=== PATIENT | male | born 1965 | race Hispanic/Latino ===

== ENCOUNTER 2017-07-11 10:02 | Outpatient (CLI) | payer OTHER ==
[2017-07-11 10:48] LABS: Hemoglobin 16.2 g/dL (14.0-18.0); Mean Corpuscular HGB CONC 34.5 g/dL (32.0-36.0); Mean Corpuscular Hemoglobin 33.4 pg (27.0-31.0); Mean Corpuscular Volume 96.9 fl (80.0-94.0); Mean Platelet Volume 7.6 fL (7.4-10.4); Platelet Count 179 thou/uL (130-400); RBC Distribution Width 12.1 % (11.5-14.5); Red Blood Cell (RBC) Count 4.83 mill/uL (4.70-6.10); White Blood Cell (WBC) Count 5.5 thou/uL (4.8-10.8)
[2017-07-11 11:08] LABS: Anion Gap 10 mmol/L (10-20); BUN (Urea Nitrogen) 27 mg/dL (8.4-25.7); Calc. Creatinine Clearance 0 mL/min (70-130); Calcium 9.5 mg/dL (7.8-10.44); Carbon Dioxide 34 mmol/L (22-29); Chloride 96 mmol/L (98-107); Estimated GFR-MDRD 65; Glucose 163 mg/dL (70-105); Potassium 3.2 mmol/L (3.5-5.1); Sodium 137 mmol/L (136-145)
--- NOTE | 2017-07-11 15:46 | EKG ---
Test Reason : Blood Pressure : / mmHG Vent. Rate : 083 BPM Atrial Rate : 083 BPM P-R Int : 136 ms QRS Dur : 094 ms QT Int : 370 ms P-R-T Axes : 062 012 -05 degrees QTc Int : 434 ms Normal sinus rhythm RSR' or QR pattern in V1 suggests right ventricular conduction delay Nonspecific T wave abnormality Abnormal ECG Confirmed by KAREN DURHAM ([id number]) on 07/11/2017 3:46:29 PM Referred By: SHERIF Confirmed By:KAREN DURHAM
== END 2017-07-11 10:03 | disposition home or self-care (01) ==
LOC: LABBT 10:02
PROVIDERS: ATTEND Neurological Surgery
DX: Z01.818 Encounter for other preprocedural examination (principal); M54.16 Radiculopathy, lumbar region
CPT/HCPCS: 80048; 85027; 93005; 93010

== ENCOUNTER 2017-07-20 05:40 | Day surgery (SDC) | payer OTHER ==
[2017-07-11 11:06] VITALS: BMI 29.5
--- NOTE | 2017-07-20 00:10 | HP ---
HISTORY OF PRESENT ILLNESS: Mr. 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 He has been treating this w the [facility] Dr. Simpson at [facility] pain management for several years involving epidural steroid inj ections to help his symptoms, but they seem to be worsening. He has two MRIs, one from 2015 and one for more recently got at [facility], which revealed progressive spondylosis and narrowing of the b ilateral L5 neural foramen. He does have a baseline now, left-sided L5 radiculopathy does fit with m oderate stenosis of the left L5 foramen on his MRI scan. Additionally, he has some neck pain and occ ipital neuralgia, but his back pain is much more of a significant concern. PAST MEDICAL HISTORY: Significant for chronic back and neck problems, but no other major medical iss ues. CURRENT MEDICATIONS: Chlorthalidone, gabapentin, tizanidine, hydrocodone. PAST SURGICAL HISTORY: Carpal tunnel release and rotator cuff repair of the right shoulder. ALLERGIES: No known drug allergies. PHYSICAL EXAMINATION: NEUROLOGIC: The patient is alert and oriented x3. Gait is mildly antalgic. EXTREMITIES: Lower extremity motor exam is normal. Upper extremity motor exam is normal. NECK: Cervical range of motion is intact. ASSESSMENT: Lumbar radiculopathy and occipital neuralgia. PLAN: Dr. Bautista met with the patient, reviewed imaging and advocated for a left L5 foraminotomy. He explained to the patient the risks, benefits, and alternatives to the procedure. The patient expres sed understanding and would like to move forward with surgery as discussed. I do believe the patient is mentally competent and capable of making medical decisions for himself and we will move forward w the [facility] surgery as planned. Mike Cancino PA-C dictating for Dr. Bautista.
[2017-07-20] MEDS ORDERED: CEFAZOLIN/Water 2 GM/20 ML SYRINGE ONE ×3 (06:17→11:20)
[2017-07-20] MEDS ORDERED: Thrombin 5000 UNITS/5 ML VIAL ONE (06:24)
[2017-07-20] MEDS ORDERED: Bupivacaine HCl 0.5%/Epinephrine 1:200,000/PF 30 ml Vial ONE (06:24)
[2017-07-20] MEDS ORDERED: Fentanyl 250 MCG/5 ML VIAL ONE (06:39)
[2017-07-20] MEDS ORDERED: Ondansetron HCl/PF 4 MG/2 ML Vial ONE (06:39)
[2017-07-20] MEDS ORDERED: Midazolam HCl 2 mg/2 ml Vial ONE (06:43)
[2017-07-20] MEDS ORDERED: Famotidine/PF 20 mg/2ml Vial ONE (06:45)
[2017-07-20] MEDS ORDERED: Fentanyl 100 MCG/2 ML VIAL ONE (08:59)
--- NOTE | 2017-07-20 09:11 | OP ---
DATE OF PROCEDURE: 07/20/2017 SURGEON: Dr. Julio Bautista COLLATOR: Juan Cancino PA-C. INDICATION: Pain. DIAGNOSIS: Lumbar radiculopathy. PROCEDURE: Bilateral partial hemilaminectomies, bilateral L5 foraminotomies. ANESTHESIA: General. TECHNIQUE: The patient was brought into the operating room and placed under general anesthesia. He was flipped from a supine to a prone position on the operating room table. A linear incision was poppy nned over the L5-S1 segment. After prepping and draping and after an appropriate operative pause, th e incision was created. The soft tissues were swept away from midline. Self-retaining retractors we re placed in the wound for optimal exposure. After confirming the appropriate level with C-arm fluor oscopy, a high-speed cutting drill bit as well as 2, 3 and 4-mm Kerrisons were used to perform partia l hemilaminectomy along the inferior aspect of L5 and superior aspect of S1. The medial facet joints were shaved down. Foraminotomies were performed over the exiting L5 nerve roots in order to decompr ess them as they passed through the foramina. The wound was then irrigated. Hemostasis was maintain ed throughout. The wound was then closed in anatomic layers and a pressure dressing was applied. Th ere were no known procedural complications.
[2017-07-20] MEDS ORDERED: HYDROmorphone 0.5 MG/0.5 ML SYRINGE ONE (09:25)
[2017-07-20] MEDS ORDERED: HYDROcodone/Acetaminophen 5/325 mg Tablet ONE (11:10)
== END 2017-07-20 11:30 | disposition home or self-care (01) ==
LOC: SDC 05:40
PROVIDERS: ATTEND Neurological Surgery
PROC: 01NB0ZZ Release Lumbar Nerve, Open Approach (ICD-10-PCS; principal; 2017-07-20)
DX: M54.16 Radiculopathy, lumbar region (principal); M54.81 Occipital neuralgia; G47.30 Sleep apnea, unspecified; Z79.82 Long term (current) use of aspirin; Z79.899 Other long term (current) drug therapy; Z98.890 Other specified postprocedural states; Z99.89 Dependence on other enabling machines and devices
CPT/HCPCS: 76001; 96374; J0131; J0670; J1170; J2250; J2405; J3010; S0028

== ENCOUNTER 2017-09-04 07:30 | Outpatient (CLI) | payer OTHER ==
--- NOTE | 2017-09-04 10:00 | CT ---
CT OF LUMBAR SPINE PERFORMED WITHOUT CONTRAST ENHANCEMENT: History: Back, right hip, and leg pain. History of back surgery, type unspecified, in July 2017. FINDINGS: The vertebral bodies are normal in height and disc spaces all appear well preserved. There is no sign ificant periaortic adenopathy and the visualized portions of the kidneys appear unremarkable. T12-L1: Unremarkable. L1-2: Unremarkable. L2-3: There is some minimal disc bulge. Mild facet hypertrophic changes associated with some borderli ne canal narrowing. L3-4: Moderate degree of canal narrowing with disc bulge and facet and ligamentous hypertrophic bettencourt e. L4-5: Disc bulge. Facet and ligamentous hypertrophic changes also associated with a severe degree of canal stenosis. No lateralizing disc. L5-S1: Degenerative facet changes associated with some borderline bilateral foraminal narrowing, but no significant central canal stenosis. IMPRESSION: Moderate canal stenosis at L3-4 and L4-5 and some mild bilateral foraminal narrowing at L5-S1. POS: JOHN
== END 2017-09-04 07:31 | disposition home or self-care (01) ==
LOC: CT 07:30
PROVIDERS: ATTEND Neurological Surgery
DX: M54.16 Radiculopathy, lumbar region (principal); M48.061 Spinal stenosis, lumbar region without neurogenic claudication; M99.83 Other biomechanical lesions of lumbar region
CPT/HCPCS: 72131

== ENCOUNTER 2018-07-18 00:14 | Outpatient (CLI) | payer OTHER ==
[2018-07-18 17:26] LABS: Hemoglobin 15.6 g/dL (14.0-18.0); Mean Corpuscular HGB CONC 34.9 g/dL (32.0-36.0); Mean Corpuscular Hemoglobin 32.2 pg (27.0-31.0); Mean Corpuscular Volume 92.2 fL (78.0-98.0); Mean Platelet Volume 8.7 fL (7.4-10.4); Platelet Count 170 thou/uL (130-400); RBC Distribution Width 11.3 % (11.5-14.5); Red Blood Cell (RBC) Count 4.85 mill/uL (4.70-6.10); White Blood Cell (WBC) Count 3.7 thou/uL (4.8-10.8)
[2018-07-18 17:44] LABS: Anion Gap 13 mmol/L (10-20); BUN (Urea Nitrogen) 16 mg/dL (8.4-25.7); Calc. Creatinine Clearance 0 mL/min (70-130); Calcium 9.6 mg/dL (7.8-10.44); Carbon Dioxide 29 mmol/L (22-29); Chloride 102 mmol/L (98-107); Estimated GFR-MDRD 79; Glucose 246 mg/dL (70-105); Potassium 3.6 mmol/L (3.5-5.1); Sodium 140 mmol/L (136-145)
== END 2018-07-18 00:15 | disposition home or self-care (01) ==
LOC: LABBT 00:14
PROVIDERS: ATTEND Neurological Surgery
DX: Z01.818 Encounter for other preprocedural examination (principal); M54.12 Radiculopathy, cervical region
CPT/HCPCS: 80048; 85027; 93005; 93010

== ENCOUNTER 2018-07-26 05:43 | Day surgery (SDC) | payer OTHER ==
[2018-07-18 16:26] VITALS: BMI 29.5
--- NOTE | 2018-07-25 16:39 | HP ---
HISTORY OF PRESENT ILLNESS: Mr. Tilley is a 52-year-old man known to us from previous lumbar decompression, who returns now with bilateral upper extremity complaints, mostly in the pattern of a C6 and partially C7 fashion. His MRI from [place] reveals pathology of between C5-C6 and C6-C7 that would fit. He has treated this conservatively with therapy and medications and hopes to move forward with surgery if possible. PAST MEDICAL HISTORY: Significant for chronic back and neck problems. No other major medical issues. CURRENT MEDICATIONS: 1. Chlorthalidone. 2. Gabapentin. 3. Tizanidine. 4. [place]. PAST SURGICAL HISTORY: Carpal tunnel release, rotator cuff repair of the right shoulder, and lumbar decompression. ALLERGIES: NO KNOWN DRUG ALLERGIES. PHYSICAL EXAMINATION: NEUROLOGIC: The patient is alert and oriented x3. Gait is mildly antalgic. Upper extremity motor exam is normal. He does have a mild limitation in the cervical range of motion. Reflexes are equal and present bilaterally at the biceps tendon. ASSESSMENT: Cervical radiculopathy. PLAN: Dr. Bautista met with the patient, reviewed imaging, advocated for C5 through C7 ACDF. He explained to the patient the risks, benefits, and alternatives to the procedure. The patient expressed understanding and elected to move forward with surgery as discussed. I do believe the patient is mentally competent and capable of making medical decisions for himself. We will move forward with surgery as planned. Job ID: [id number]
[2018-07-26] MEDS ORDERED: Thrombin 5000 UNITS/5 ML VIAL ONE (06:25)
[2018-07-26] MEDS ORDERED: Fentanyl 250 MCG/5 ML VIAL ONE (06:45)
[2018-07-26] MEDS ORDERED: Famotidine/PF 20 mg/2ml Vial ONE (06:47)
[2018-07-26] MEDS ORDERED: Scopolamine 1.5 mg/72 hour Patch ONE (06:47)
[2018-07-26] MEDS ORDERED: Ondansetron PF 4 MG/2 ML Vial ONE (06:47)
[2018-07-26] MEDS ORDERED: Midazolam HCl 2 mg/2 ml Vial ONE (06:48)
[2018-07-26] MEDS ORDERED: Ondansetron PF 4 MG/2 ML Vial IVP SCH (07:15)
[2018-07-26] MEDS ORDERED: Famotidine/PF 20 mg/2ml Vial SLOW IVP SCH (07:15)
[2018-07-26] MEDS ORDERED: Scopolamine 1.5 mg/72 hour Patch TOP SCH (07:15)
[2018-07-26] MEDS ORDERED: Midazolam HCl 2 mg/2 ml Vial IVP SCH (07:15)
[2018-07-26] MEDS ORDERED: Esmolol 100 MG/10 ML VIAL ONE (08:32)
[2018-07-26] MEDS ORDERED: Fentanyl 100 MCG/2 ML VIAL ONE (08:56)
[2018-07-26] MEDS ORDERED: Tamsulosin HCl 0.4 MG CAP ONE (09:08)
--- NOTE | 2018-07-26 09:19 | OP ---
DATE OF PROCEDURE: 07/26/2018 BUTTON SEWING MACHINE OPERATOR: Mike Cancino PA-C. INDICATION: Pain. DIAGNOSIS: Cervical radiculopathy. PROCEDURES PERFORMED: Anterior cervical diskectomy and fusion C5-C7. DESCRIPTION OF PROCEDURE: The patient was brought into the operating room and placed under general anesthesia. He was placed on table in a supine position. A transverse incision was planned over the lateral aspect of the neck on the right. After prepping and draping and after preoperative pause, the incision was created. The underlying platysma muscle was identified and incised. A blunt tissue plane anterior to the sternocleidomastoid muscle was used to gain access to the prevertebral space. Self-retaining retractors were then placed in the wound for optimal exposure. An annulotomy was then performed in the C6-C7 disk space. All disk material as well as anterior and posterior osteophytes were removed. After complete decompression, a 7 mm lordotic PEEK cage packed with allograft and autograft material was placed in the interbody space. We then redirected our attention to the level above at C5-C6, where again an annulotomy was performed. All disk material as well as anterior and posterior osteophytes were removed. After decompressing this level, a 7 mm lordotic PEEK cage packed with allograft and autograft material was placed within the interbody space. An anterior cervical plate was then fashioned to the front of spine and secured with a total of 6 screws. Midline and lateral structures were inspected and found to be free from significant trauma. The wound was irrigated. Hemostasis was maintained throughout. The wound was then closed in anatomic layers and a pressure dressing was applied. There were no known procedural complications. Job ID: [id number]
[2018-07-26] MEDS ORDERED: HYDROcodone/Acetaminophen 5/325 mg Tablet ONE (10:08)
[2018-07-26] MEDS ORDERED: PROPOFOL 200 MG/20 ML VIAL ONE (14:48)
[2018-07-26] MEDS ORDERED: Rocuronium Bromide 10 MG/ML (10ML VIAL) ONE (14:48)
[2018-07-26] MEDS ORDERED: Dexamethasone 20 MG/5 ML VIAL ONE (14:48)
[2018-07-26] MEDS ORDERED: Lidocaine 1% PF 5 ML VIAL ONE (14:48)
[2018-07-26] MEDS ORDERED: Succinylcholine Chloride 20 MG/ML 10 ml SYRINGE FS ONE (14:48)
[2018-07-26] MEDS ORDERED: Glycopyrrolate 0.2 MG/ML 5 ML SYRINGE ONE (14:48)
== END 2018-07-26 11:04 | disposition home or self-care (01) ==
LOC: SDC 05:43
PROVIDERS: ATTEND Neurological Surgery
PROC: 0RG2070 Fusion of 2 or more Cervical Vertebral Joints with Autologous Tissue Substitute, Anterior Approach, Anterior Column, Open Approach (ICD-10-PCS; principal; 2018-07-26)
PROC: 0RG20A0 Fusion of 2 or more Cervical Vertebral Joints with Interbody Fusion Device, Anterior Approach, Anterior Column, Open Approach (ICD-10-PCS; principal; 2018-07-26)
DX: M54.12 Radiculopathy, cervical region (principal); Z79.84 Long term (current) use of oral hypoglycemic drugs; Z79.82 Long term (current) use of aspirin; Z79.899 Other long term (current) drug therapy; Z98.890 Other specified postprocedural states
CPT/HCPCS: 76000; C1713; C1776; J0131; J1100; J2001; J2250; J2405; J2704; J3010; S0028

== ENCOUNTER 2025-01-09 04:55 | Emergency (ER) | payer MEDICARE, OTHER ==
[2025-01-09 07:31] LABS: Cocaine Metabolite Screen Negative (Negative); THC/Cannabinoid Screen Negative (Negative); Tricyclic Screen Negative (Negative)
== END 2025-01-09 09:13 | disposition home or self-care (01) ==
LOC: ERS 04:55
DX: F43.0 Acute stress reaction (principal); I25.2 Old myocardial infarction
CPT/HCPCS: 80306; 99285